=== PATIENT | female | born 1950 | race African-American/Black ===

== ENCOUNTER 2018-08-10 11:52 | Outpatient (CLI) | payer MEDICARE, MEDICAID ==
--- NOTE | 2018-08-10 17:50 | RAD ---
LEFT KNEE FOUR VIEWS: 08/10/18 No fracture was seen. A small joint effusion is present. Arthritic changes are minimal but there is s light medial joint space narrowing. Vascular clips are seen along the medial aspect of the lower thig h. IMPRESSION: Small joint effusion, otherwise no acute findings. POS: HOME
== END 2018-08-10 11:53 | disposition home or self-care (01) ==
LOC: BURRAD 11:52
PROVIDERS: ATTEND Family Medicine
DX: M23.92 Unspecified internal derangement of left knee (principal); M25.462 Effusion, left knee